=== PATIENT | male | born 1970 | race Caucasian/White ===

== ENCOUNTER → 2021-03-08 | Outpatient (CLI) | payer BC ==
[~2021-03-08] MED LIST: ASPIRIN CHEWABL81 MG PO; BRILINTA90 MG PO; CINNAMON500 MG PO; FARXIGA10 MG PO; GARLIC1 EAC1 PO; GLUCOPHAGE1000 MG PO; L-ARGININE500 MG PO; LOPRESSOR 25 MG25 MG PO; NEPHROCAPS SOFTG1 MG PO; PERCOCET 5/325 T1 EA PO; TRICOR145 MG PO
== END ==
LOC: US 03-06 10:30
DX: R10.11 Right upper quadrant pain (principal); K76.0 Fatty (change of) liver, not elsewhere classified
CPT/HCPCS: 76705